=== PATIENT | male | born 1950 | race Two or more races ===

== ENCOUNTER 2023-09-25 02:44 | Inpatient (IN) | payer MEDICARE ==
[~2023-09-25] VITALS: Ht 172.7 cm; Wt 62.7 kg
[2023-09-25] MEDS ORDERED: CefTRIAXone 1 GM/DEXTROSE 50 ML IV ONE (03:00)
[2023-09-25] MEDS ORDERED: SODIUM CHLORIDE 0.9% 2,400 ML IV ONE (03:00)
[2023-09-25] MEDS ORDERED: 0.9% SODIUM CHLORIDE 10 ML SYRINGE IVP PRN (03:00)
[2023-09-25] MEDS ORDERED: ACETAMINOPHEN 500 MG TABLET PO ONE (03:15)
[2023-09-25 03:16] LABS: GLUCOMETER DEV NAME(LOC) ERT.5; GLUCOSE,POINT OF CARE 73 MG/DL (70-110)
[2023-09-25 03:29] LABS: BASOPHILS % (AUTO) 0.3 % (0.0-2.0); EOSINOPHILS % (AUTO) 0.1 % (1.0-6.0); HEMATOCRIT 33.1 % (41-53); HEMOGLOBIN 11.1 g/dL (13.5-17.5); LYMPHOCYTES # (AUTO) 0.8 K/uL (1.0-4.8); LYMPHOCYTES % (AUTO) 12.7 % (22.0-44.0); MEAN CORPUSCULAR HEMOGLOBIN 30.3 pg (26.0-34.0); MEAN CORPUSCULAR HGB CONC 33.6 G/dL (31.0-37.0); MEAN CORPUSCULAR VOLUME 90 fL (80-100); MONOCYTES # (AUTO) 0.6 K/uL (0.1-1.0); MONOCYTES % (AUTO) 8.9 % (2.0-9.0); NEUTROPHILS # (AUTO) 5.1 K/uL (1.8-7.7); PLATELET COUNT (AUTO) 176 K/uL (150-450); RED BLOOD CELL COUNT(AUTO) 3.67 MIL/uL (4.50-5.90); RED CELL DISTRIBUTION WIDTH 13.7 % (11.5-14.5); WHITE BLOOD COUNT (AUTO) 6.5 K/uL (4.5-11.0)
[2023-09-25 03:38] LABS: ANION GAP 12 mmol/L (8-16); CALCIUM, TOTAL 10.1 mg/dL (8.8-10.5); CARBON DIOXIDE 24 mmol/L (22-29); CHLORIDE 105 mmol/L (98-107); CREATININE 0.85 mg/dL (0.60-1.30); GLOMERULAR FILTR. RATE CALC > 60 mL/min (>60); GLUCOSE,RANDOM 73 mg/dL (70-110); POTASSIUM 4.1 mmol/L (3.5-5.1); SODIUM SERUM 141 mmol/L (136-145); UREA NITROGEN, BLOOD 24 mg/dL (7-18)
[2023-09-25 03:44] LABS: LACTIC ACID 1.5 mmol/L (0.4-2.0)
[2023-09-25 03:49] LABS: INR 1.1 (0.9-1.1); PROTHROMBIN TIME 11.4 SEC (9.4-11.6)
[2023-09-25 03:51] LABS: ALANINE AMINOTRANSFERASE 21 U/L (12-78); ALBUMIN 3.7 g/dL (3.4-5.0); ALKALINE PHOSPHATASE 175 U/L (46-116); ASPARTATE AMINOTRANSFERASE 16 U/L (15-37); BILIRUBIN,TOTAL 0.3 mg/dL (0.1-1.0); TOTAL PROTEIN, SERUM 7.1 g/dL (6.4-8.2)
[2023-09-25 03:53] LABS: TROPONIN I-HIGH SENSITIVITY 89 ng/L (<76)
[2023-09-25 04:12] LABS: B-TYPE NATRIURETIC PEPTIDE 99 pg/mL (0-100)
[2023-09-25] MEDS ORDERED: ASPIRIN 325 MG TABLET PO ONE (04:15)
[2023-09-25] MEDS ORDERED: SITA100 PO (04:56)
[2023-09-25 04:58] LABS: APPEARANCE,URINE CLEAR (CLEAR); BILIRUBIN,URINE NEGATIVE (NEGATIVE); COLOR,URINE LIGHT YELLOW (YELLOW); GLUCOSE, URINE (UA) NEGATIVE (NEGATIVE); KETONES,URINE NEGATIVE (NEGATIVE); LEUKOCYTE ESTERASE ,URINE NEGATIVE (NEGATIVE); NITRATE,URINE NEGATIVE (NEGATIVE); OCCULT BLOOD,URINE NEGATIVE (NEGATIVE); PROTEIN,URINE 30-70 mg/dL (NEGATIVE); SPECIFIC GRAVITIY, URINE 1.021 (1.003-1.030); UROBILINOGEN,URINE <=1.0 mg/dL (<=1.0)
[2023-09-25] MEDS ORDERED: ATOR20TA65 PO (05:00)
[2023-09-25] MEDS ORDERED: ERGO50CA PO (05:00)
[2023-09-25] MEDS ORDERED: FINA1TAB17 PO (05:00)
[2023-09-25] MEDS ORDERED: GLIP1TAB6 PO (05:00)
[2023-09-25] MEDS ORDERED: TAMS-1 PO (05:00)
[2023-09-25 05:02] LABS: COVID AG,FIA SOURCE NASAL SWAB
[2023-09-25 05:22] LABS: INFLUENZA TYPE A NEGATIVE FOR TYPE A (NEGATIVE); INFLUENZA TYPE B NEGATIVE FOR TYPE B (NEGATIVE)
[2023-09-25 05:27] LABS: SARS-COV2 (COVID) ANTIGEN,FIA Positive (Negative)
[2023-09-25] MEDS ORDERED: SODIUM CHLORIDE 0.9% 1,000 ML IV ONE (06:15)
[2023-09-25 07:18] VITALS: BP 107/63; PULSE 73; RESP 18; TEMP 97.8
[2023-09-25 07:48] LABS: TROPONIN I-HIGH SENSITIVITY 300 ng/L (<76)
[2023-09-25] MEDS ORDERED: ACETAMINOPHEN 325 MG TABLET PO PRN (08:15)
[2023-09-25] MEDS ORDERED: DEXTROSE 50%-WATER 25 GM/50 ML SYRINGE IVP PRN (08:15)
[2023-09-25] MEDS ORDERED: MAGNESIUM HYDROXIDE SUSPENSION 30 ML UDCUP PO PRN (08:15)
[2023-09-25] MEDS ORDERED: REMDESIVIR 200 MG in SODIUM CHLORIDE 0.9% 250 ML IV ONE (08:15)
[2023-09-25] MEDS: FAMOTIDINE 20 MG TABLET PO SCH (08:44)
[2023-09-25] MEDS: DOCUSATE SODIUM 100 MG CAPSULE PO SCH ×2 (08:44→20:20)
[2023-09-25] MEDS: ATORVASTATIN CALCIUM 20 MG TABLET PO SCH (08:44)
[2023-09-25] MEDS: ASPIRIN 81 MG CHEWABLE TABLET PO SCH (08:44)
[2023-09-25] MEDS ORDERED: CHOL25TA4 PO (10:59)
[2023-09-25] MEDS: INSULIN LISPRO 100 UNITS/ML SQ PRN (11:54)
[2023-09-25 12:29] VITALS: BP 104/65; PULSE 66; RESP 18; TEMP 98.3
[2023-09-25 12:31] LABS: GLUCOMETER DEV NAME(LOC) 5S.1B; GLUCOSE,POINT OF CARE 101 MG/DL (70-110)
[2023-09-25 12:31] LABS: GLUCOMETER DEV NAME(LOC) 5S.1B; GLUCOSE,POINT OF CARE 61 MG/DL (70-110)
[2023-09-25 12:31] LABS: GLUCOMETER DEV NAME(LOC) 5S.1B; GLUCOSE,POINT OF CARE 60 MG/DL (70-110)
[2023-09-25 12:31] LABS: GLUCOMETER DEV NAME(LOC) 5S.1B; GLUCOSE,POINT OF CARE 220 MG/DL (70-110)
[2023-09-25 14:39] LABS: TROPONIN I-HIGH SENSITIVITY 223 ng/L (<76)
[2023-09-25 15:02] VITALS: BP 98/55; PULSE 75; RESP 18; TEMP 98.4
[2023-09-25] MEDS: HEPARIN SODIUM,PORCINE 5,000 UNITS/ML VIAL SQ SCH (16:37)
[2023-09-25 17:01] LABS: GLUCOMETER DEV NAME(LOC) 5S.1B; GLUCOSE,POINT OF CARE 128 MG/DL (70-110)
[2023-09-25] MEDS ORDERED: MAGN400T57 PO (18:42)
[2023-09-25 19:57] VITALS: BP 100/57; PULSE 76; RESP 18; TEMP 97.5
[2023-09-25] MEDS ORDERED: TAMSULOSIN HCL 0.4 MG CAPSULE PO SCH (21:00)
[2023-09-26 00:01] LABS: GLUCOMETER DEV NAME(LOC) 5N.1C; GLUCOSE,POINT OF CARE 126 MG/DL (70-110)
[2023-09-26] MEDS: HEPARIN SODIUM,PORCINE 5,000 UNITS/ML VIAL SQ SCH ×2 (00:21→08:23)
[2023-09-26 00:35] VITALS: BP 99/55; PULSE 74; RESP 18; TEMP 98.7
[2023-09-26 04:39] VITALS: BP 102/52; PULSE 71; RESP 18; TEMP 98.3
[2023-09-26 07:17] VITALS: BP 103/59; PULSE 69; RESP 18; TEMP 98
[2023-09-26] MEDS: ASPIRIN 81 MG CHEWABLE TABLET PO SCH (08:22)
[2023-09-26] MEDS: FAMOTIDINE 20 MG TABLET PO SCH (08:22)
[2023-09-26] MEDS: ATORVASTATIN CALCIUM 20 MG TABLET PO SCH (08:22)
[2023-09-26] MEDS: DOCUSATE SODIUM 100 MG CAPSULE PO SCH (08:23)
[2023-09-26] MEDS ORDERED: REMDESIVIR 100 MG in SODIUM CHLORIDE 0.9% 250 ML IV SCH (10:00)
[2023-09-26 11:36] LABS: GLUCOMETER DEV NAME(LOC) 5S.1B; GLUCOSE,POINT OF CARE 99 MG/DL (70-110)
[2023-09-26] MEDS: INSULIN LISPRO 100 UNITS/ML SQ PRN (12:05)
[2023-09-26 12:12] VITALS: BP 120/63; PULSE 69; RESP 18; TEMP 98
[2023-09-26 12:26] LABS: GLUCOMETER DEV NAME(LOC) 5N.1C; GLUCOSE,POINT OF CARE 193 MG/DL (70-110)
== END 2023-09-26 13:16 | disposition left against medical advice (07) | DRG 871 ==
LOC: EMS 02:46 → 5S 06:13
PROVIDERS: ADMIT Internal Medicine; ATTEND Internal Medicine
PROC: XW033E5 Introduction of Remdesivir Anti-infective into Peripheral Vein, Percutaneous Approach, New Technology Group 5 (ICD-10-PCS; principal; 2023-09-25)
DX: A41.89 Other specified sepsis (principal); J12.82 Pneumonia due to coronavirus disease 2019; U07.1 COVID-19; E11.9 Type 2 diabetes mellitus without complications; F02.A0 Dementia in other diseases classified elsewhere, mild, without behavioral disturbance, psychotic disturbance, mood disturbance, and anxiety; G30.9 Alzheimer's disease, unspecified; R79.89 Other specified abnormal findings of blood chemistry; Z53.29 Procedure and treatment not carried out because of patient's decision for other reasons
CPT/HCPCS: 0241U; 70450; 71045; 80053; 81003; 82962; 83605; 83880; 84145; 84484; 85025; 85610; 87040; 87420; 87804; 93005; 99291; J0696; J1644; J7030; J7050; Q9967; 36415-L1; 36415-TC